=== PATIENT | male | born 1970 | race Caucasian/White ===

== ENCOUNTER 2017-01-26 14:20 | Emergency (ER) | payer BC, OTHER ==
[2017-01-26] MEDS ORDERED: Sodium Chloride 0.9% 10 ML Syringe FLUSH PRN (14:43)
[2017-01-26] MEDS ORDERED: Albuterol 6.7 GM Inhaler INH ONE (15:03)
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
--- NOTE | 2017-01-26 15:43 | CR ---
Chest: Two views of the chest were obtained. Comparison: No previous chest x-ray. Heart size and mediastinum are normal. Lungs are clear. Bony structures are within normal limits for the patient's age. Impression: 1. Nothing acute is appreciated on two-view chest x-ray. Diagnostic code #1
[2017-01-26 16:37] VITALS: BP 122/72
== END 2017-01-26 16:30 | disposition home or self-care (01) ==
LOC: JD.ED 14:20
DX: R06.02 Shortness of breath (principal)
CPT/HCPCS: 36415; 71020; 80053; 82553; 84484; 85025; 85379; 85610; 93005; 94664; 99285; A9270; J7050; 99284